=== PATIENT | male | born 1980 | race American Indian/Alaskan Native ===

== ENCOUNTER 2018-04-17 22:51 | Emergency (ER) | payer OTHER ==
--- NOTE | 2018-04-18 00:20 | Emergency Department Report ---
ED Upper Extremity Inj HPI - General Chief Complaint: Extremity Problem,Nontraumatic Stated Complaint: INFECTION Source: patient Mode of arrival: Ambulatory Limitations: No Limitations - History of Present Illness Initial Comments: This is a 38-year-old -[place] male presents with swelling around third right nail for 4 days. Patient states he initially had a 31st about 1-2 hours ago. There is foul smelling discharge from the area and pain. Patient states he does not recall any injury. He denies numbness or tingling, fever, or weakness. MD Complaint: Injury to:: right, finger (3rd) Onset/Timin -: days(s) Other Extremity Injury: Fingers: Right (3rd) Other Injuries: none Handedness: right Place: home Severity scale (0 -10): 4 Improves With: none Worsens With: none Associated Symptoms: denies other symptoms Treatments Prior to Arrival: cold therapy - Related Data Previous Rx's Medication Instructions Recorded Last Taken Type Amoxicillin/Potassium Clav 1 each PO BID #14 tablet 04/18/18 Unknown Rx [Augmentin 500-125 Tablet] Allergies Allergy/AdvReac Type Severity Reaction Status Date / Time No Known Allergies Allergy Unverified 04/17/18 23:26 ED Review of Systems ROS: Stated complaint: INFECTION Other details as noted in HPI Constitutional: denies: chills, fever Respiratory: denies: cough, shortness of breath, wheezing Cardiovascular: denies: chest pain, palpitations Gastrointestinal: denies: abdominal pain, nausea, diarrhea Skin: other (swelling and pain around 3rd digit nail). denies: rash, lesions Neurological: denies: headache, weakness, paresthesias Psychiatric: denies: anxiety, depression ED Past Medical Hx - Past Medical History Previous Medical History?: No - Surgical History Past Surgical History?: No - Social History Smoking Status: Former Smoker Substance Use Type: None - Medications Home Medications: Home Medications Medication Instructions Recorded Confirmed Last Taken Type Amoxicillin/Potassium Clav 1 each PO BID #14 tablet 04/18/18 Unknown Rx [Augmentin 500-125 Tablet] ED Physical Exam - General Limitations: No Limitations General appearance: alert, in no apparent distress - Respiratory Respiratory exam: Present: normal lung sounds bilaterally. Absent: respiratory distress - Cardiovascular Cardiovascular Exam: Present: regular rate, normal rhythm. Absent: systolic murmur, diastolic murmur, rubs, gallop - GI/Abdominal GI/Abdominal exam: Present: soft, normal bowel sounds - Neurological Exam Neurological exam: Present: alert, oriented X3 - Psychiatric Psychiatric exam: Present: normal affect, normal mood - Skin Skin exam: Present: warm, dry, intact, normal color, erythema, other (3rd right nail edge tender, yellow discharge at distended paonychium, mild swelling, normal nail color, nonfluctuant). Absent: rash, cyanosis, diaphoretic, urtic aria, vesicles, petechiae, pallor, abrasion, ecchymosis ED Course Vital Signs 04/17/18 23:26 Temperature 98.3 F Pulse Rate 67 Respiratory 20 Rate Blood Pressure 140/91 O2 Sat by Pulse 99 Oximetry ED Medical Decision Making - Medical Decision Making Patient was examined by me. Vitals are normal and patient is in no acute distress. Paronychia Start augmentin 500/125 mg po bid x 7 days, 0 refills. Instructed to do warm compress and soaks. Plan discussed with patient to discharge home and treat outpatient. He agrees with ER plan. Patient discharged home in stable condition. Follow up with PCP in 2-3 days. Critical care attestation.: If time is entered above; I have spent that time in minutes in the direct care of this critically ill patient, excluding procedure time. ED Disposition Clinical Impression: Paronychia of right middle finger Disposition: DC-01 TO HOME OR SELFCARE Is pt being admited?: No Does the pt Need Aspirin: No Condition: Stable Instructions: Paronychia (ED) Additional Instructions: Soak finger in warm water or use warm compresses and elevate. Return to emergency room if increased swelling, pain, foul discharge, or fever. Prescriptions: Amoxicillin/Potassium Clav [Augmentin 500-125 Tablet] 1 each PO BID #14 tablet Referrals: [facility] [Outside] - 3-5 Days [facility] [Outside] - 3-5 Days [facility] [Outside] - 3-5 Days Time of Disposition: 00:26
== END 2018-04-18 00:39 | disposition home or self-care (01) ==
LOC: ED 22:51
DX: L03.011 Cellulitis of right finger (principal)
CPT/HCPCS: 99282